=== PATIENT | female | born 1995 | race Caucasian/White ===

== ENCOUNTER 2017-10-15 09:39 | Emergency (ER) | payer SELFPAY ==
[2017-10-15 09:46] VITALS: BP 117/76; BMI 21.4
--- NOTE | 2017-10-15 10:07 | DR.GENAD ---
HPI - PCP Primary Care Physician: MIAN - HPI Comment HPI Comment: PATIENT HAVE PERSISTENT COUGH SINCE SHE DEVELOP BRONCHITIS ONE MONTH AGO. NO FEVER. COUGH MEDS AT HOME NOT HELPING. - Complaint/Symptoms Chief Complaint Doctors Comments: COUGH TIMES ONE MONTH. Chief Complaint:: PATIENT HAS BEEN DX WITH BRONCHITIS 1 MONTH AGO AND SHE STATED SHE IS STILL COUGHING. Self Treatment fo Chief Complaint: HAS TAKEN SEVERAL COUGH MEDS AND OVER THE COUNTER MEDS. AND HAS BEEN ON CLYNDIMYCIN FOR 7 DAYS. HAD A FLU TEST AND IT WAS NEGATIVE - Nurses notes reviewed Nurses Notes Review: Yes - Source History Provided: Patient - Mode of Arrival Mode of Arrival: Ambulatory - Timing Onset of Chief Complaint: 09/11/17 Came on: Suddenly - Duration Duration: Constant Duration: Days - Severity Severity: Moderate PMH - PMH Past Medical History: Yes Past Medical History: Depression Past Surgical History: Yes Surgical History: Tonsillectomy - Family History History of Family Medical Conditions: No - Social History Does patient currently use any type of tobacco product: Yes Have you used tobacco products in the last 12 months: Yes Type of Tobacco Use: Cigarettes How many years tobacco product used: 8 Does any household member use tobacco: Yes Alcohol Use: None Do you use any recreational Drugs:: No Lives With: Family Lives Where: Home - infectious screening In the last 2 months have you had wt loss of >10#?: NO Have you had fever, night sweats or hemotysis?: No Have you traveled outside the country in the last 6 months?: No Isolation: Standard ROS - Review of Systems Constitutional: Fatigue. negative: Chills, Fever Eyes: No Symptoms Reported. negative: Eye Pain ENTM: Ear Pain, Nose Discharge, Nose Congestion, Throat Pain Respiratoy: Brassy Cough Cardiovascular: No Symptoms Reported Gastrointestinal/Abdominal: Vomiting Genitourinary: No Symptoms Reported Neurological: Headache Musculoskeletal: Muscle Pain Integumentary: No Symptoms Reported Hematologic/Lymphatic: No Symptoms Reported Endocrine: No Symptoms Reported All Other Systems: Reviewed and Negative PE - Vital Signs Vitals: Temperature 98.3 F Pulse Rate 117 Respiratory Rate 16 Blood Pressure 117/76 O2 Sat by Pulse Oximetry 99 - General Limitations: No Limitations General Appearance: Alert - Head Head Exam: Normal Inspection - Eyes Eye exam: Normal Appearance - ENT ENT Exam: Normal External Ear Exam External Ear Exam: Normal External Inspection TM/Canal Exam: Bilateral Normal Nose Exam: Normal Nose Exam Mouth Exam: Normal Inspection Throat Exam: Normal Inspection - Neck Neck Exam: Normal Inspection - Chest Chest Inspection: Symmetric Chest Wall Rise - Respiratory Respiratory Exam: Normal Lung Sounds Bilat Respiratory Exam: Bilateral Rhonchi, Lower Rhonchi - Cardiovascular Cardiovascular Exam: Regular Rate, Normal Rhythm, Normal Heart Sounds - Abdominal Exam Abdominal Exam: Normal Bowel Sounds, Soft. negative: Tenderness - Extremities Extremities Exam: Normal Inspection - Back Back Exam: Normal Inspection - Neurologic Neurological Exam: Alert, Oriented X3 - Psychiatric Psychiatric Exam: Normal Affect, Normal Mood - Skin Skin Exam: Normal Color [facility] - Additional Information Additional Information Obtained From: Family - Differential Diagnosis Differential Diagnosis: COUGH, CHEST WALL PAIN, PNEUMONIA, REFLUX, SINUSITIS Course - Treatment Treatment: SEE ORDERS - Education/Counseling Education/Counseling: Patient, Education Educated On: Diagnosis, Needs for Follow Up ROR - Labs Reviewed Laboratory Results Reviewed?: Yes Result Diagrams: 10/15/17 10:10 10/15/17 10:10 Laboratory: WBC 10.4 X10^3/uL (3.6-10.0) H 10/15/17 10:10 RBC 4.98 X10^6/uL (3.5-5.4) 10/15/17 10:10 Hgb 12.4 g/dL (12.0-16.0) 10/15/17 10:10 Hct 37.2 % (36.0-47.0) 10/15/17 10:10 MCV 74.6 fL (80.0-100.0) L 10/15/17 10:10 MCH 24.9 pg (27.0-34.0) L 10/15/17 10:10 MCHC 33.4 g/dL (33.0-35.0) 10/15/17 10:10 RDW 13.9 % (11.6-16.5) 10/15/17 10:10 Plt Count 454 X10^3/uL (150.0-450.0) H 10/15/17 10:10 Plt Count Comment Adequate (ADEQUATE) 10/15/17 10:10 MPV 7.4 fL (7.4-11.0) 10/15/17 10:10 Neut % 69.2 % (42.0-75.0) 10/15/17 10:10 Lymph % 20.6 % (21.0-51.0) L 10/15/17 10:10 Pettis % 8.3 % (0.0-13.0) 10/15/17 10:10 Eos % 1.1 % (0.9-2.9) 10/15/17 10:10 Baso % 0.8 % (0.2-1.0) 10/15/17 10:10 Neut # 7.2 x10^3/uL (2.2-4.8) H 10/15/17 10:10 Lymph # 2.1 X10^3/uL (1.3-2.9) 10/15/17 10:10 Pettis # 0.9 x10^3/uL (0.3-0.8) H 10/15/17 10:10 Eos # 0.1 x10^3/uL (0.0-0.2) 10/15/17 10:10 Baso # 0.1 X10^3/uL (0.0-0.1) 10/15/17 10:10 Absolute Nucleated RBC 0.0 /100WBC 10/15/17 10:10 Plt Morphology Comment Normal (NORMAL) 10/15/17 10:10 RBC Morphology Normal (NORMAL) 10/15/17 10:10 Sodium 141 mmol/L (136-145) 10/15/17 10:10 Corrected Sodium TNP 10/15/17 10:10 Potassium 3.4 mmol/L (3.5-5.1) L 10/15/17 10:10 Chloride 102 mmol/L (98-107) 10/15/17 10:10 Carbon Dioxide 26.8 mmol/L (21-32) 10/15/17 10:10 BUN 16 mg/dL (7-18) 10/15/17 10:10 Creatinine 0.87 mg/dL (0.55-1.02) 10/15/17 10:10 Est GFR (MDRD) Af Amer > 60 (>60) 10/15/17 10:10 Est GFR (MDRD) Non-Af > 60 (>60) 10/15/17 10:10 Glucose 92 mg/dL (65-99) 10/15/17 10:10 Calcium 9.1 mg/dL (8.5-10.1) 10/15/17 10:10 Corrected Calcium TNP 10/15/17 10:10 Total Bilirubin 0.40 mg/dL (0.2-1.0) 10/15/17 10:10 AST 13 Units/L (15-37) L 10/15/17 10:10 ALT 20 Units/L (12-78) 10/15/17 10:10 Alkaline Phosphatase 116 Units/L (46-116) 10/15/17 10:10 Total Protein 8.8 g/dL (6.4-8.2) H 10/15/17 10:10 Albumin 3.5 g/dL (3.4-5.0) 10/15/17 10:10 Globulin 5.3 g/dL (2.5-4.5) H 10/15/17 10:10 Albumin/Globulin Ratio 0.7 Ratio (1.1-2.1) L 10/15/17 10:10 Influenza Type A (PCR) Negative (NEGATIVE) 10/15/17 10:14 Influenza Type B (PCR) Negative (NEGATIVE) 10/15/17 10:14 - XRAY XRAY Findings: REPORT DISCUSS WITH PATIENT. - Diagnosis Discharge Problem: Bronchitis, Cough Sinusitis Qualifiers: Sinusitis location: unspecified location Chronicity: acute Recurrence: not specified as recurrent Qualified Code(s): J01.90 - Acute sinusitis, unspecified - Discharge Plan Disposition: 01 HOME, SELF-CARE Condition: Stable Prescriptions: Amoxicillin [Amoxil 875 mg] 875 mg PO Q12H #20 tab Benzonatate [TESSALON PERLES *] 200 mg PO TID PRN #30 cap PRN Reason: Cough Cetirizine HCl [Zyrtec Tab 10 mg] 10 mg PO DAILY #30 tab - Follow ups/Referrals Follow ups/Referrals: CHAITANYA AGUILERA [Primary Care Provider] - 2 days - Instructions Instructions: Cough, Adult, [id number], Sinusitis, Adult, [id number], Sinus Headache Additional Instructions: RETURN TO ED IF WORSE.
[2017-10-15 10:25] LABS: BASOPHILS # (AUTO) 0.1 X10^3/uL (0.0-0.1); BASOPHILS % (AUTO) 0.8 % (0.2-1.0); EOSINOPHILS # (AUTO) 0.1 x10^3/uL (0.0-0.2); EOSINOPHILS % (AUTO) 1.1 % (0.9-2.9); HEMATOCRIT 37.2 % (36.0-47.0); HEMOGLOBIN 12.4 g/dL (12.0-16.0); LYMPHOCYTES # (AUTO) 2.1 X10^3/uL (1.3-2.9); LYMPHOCYTES % (AUTO) 20.6 % (21.0-51.0); MEAN CORPUSCULAR HEMOGLOBIN 24.9 pg (27.0-34.0); MEAN CORPUSCULAR HGB CONC 33.4 g/dL (33.0-35.0); MEAN CORPUSCULAR VOLUME 74.6 fL (80.0-100.0); MEAN PLATELET VOLUME 7.4 fL (7.4-11.0); MONOCYTES # (AUTO) 0.9 x10^3/uL (0.3-0.8); MONOCYTES % (AUTO) 8.3 % (0.0-13.0); NEUTROPHILS # (AUTO) 7.2 x10^3/uL (2.2-4.8); NEUTROPHILS % (AUTO) 69.2 % (42.0-75.0); PLATELET COUNT 454 X10^3/uL (150.0-450.0); RED BLOOD COUNT 4.98 X10^6/uL (3.5-5.4); RED CELL DISTRIBUTION WIDTH 13.9 % (11.6-16.5); WHITE BLOOD COUNT 10.4 X10^3/uL (3.6-10.0)
--- NOTE | 2017-10-15 10:29 | RAD ---
CHEST RADIOGRAPHS PA AND LATERAL VIEWS CLINICAL HISTORY: 21-year-old female with cough and congestion for 1 month. COMPARISON: None. FINDINGS: The cardiopericardial silhouette is normal. There is no focal consolidation, pleural effus ion or pneumothorax. The lungs are well inflated. Pulmonary vascularity is normal. Imaged osseous str uctures are intact. Soft tissues are unremarkable. IMPRESSION: No acute cardiopulmonary process. Reported By:
[2017-10-15 10:33] LABS: ALANINE AMINOTRANSFERASE 20 Units/L (12-78); ALBUMIN 3.5 g/dL (3.4-5.0); ALKALINE PHOSPHATASE 116 Units/L (46-116); ASPARTATE AMINO TRANSFERASE 13 Units/L (15-37); BLOOD UREA NITROGEN 16 mg/dL (7-18); CALCIUM 9.1 mg/dL (8.5-10.1); CARBON DIOXIDE 26.8 mmol/L (21-32); CHLORIDE 102 mmol/L (98-107); CREATININE 0.87 mg/dL (0.55-1.02); SODIUM 141 mmol/L (136-145); TOTAL PROTEIN 8.8 g/dL (6.4-8.2); eGFR BLACK RACES > 60 (>60); eGFR NON BLACK RACES > 60 (>60)
[2017-10-15 10:41] LABS: PLATELET MORPHOLOGY COMMENT NORMAL (NORMAL)
[2017-10-15] MEDS ORDERED: K-LYTE EFFERVESCENT PO ONE (10:54)
[2017-10-15] MEDS ORDERED: K-LYTE EFFERVESCENT ONE (11:00)
== END 2017-10-15 11:33 | disposition home or self-care (01) ==
LOC: ER 09:50
DX: J40 Bronchitis, not specified as acute or chronic (principal); R05 Cough; J01.80 Other acute sinusitis
CPT/HCPCS: 36415; 71046; 80053; 85025; 87502; 99282; 99284